=== PATIENT | female | born 1970 | race Two or more races ===

== ENCOUNTER 2024-11-19 05:30 | Inpatient (IN) | payer MEDICAID, OTHER ==
[~2024-11-19] VITALS: Ht 167.6 cm; Wt 86.0 kg
[2024-11-19] MEDS: HALOPERIDOL LACTATE 5 MG/ML INJ VIAL IM ONE ×2 (06:02→12:57)
[2024-11-19] MEDS: HALOPERIDOL LACTATE 5 MG/ML INJ VIAL ONE (06:02)
--- NOTE | 2024-11-19 06:42 | ED.PDOC ---
History of Present Illness HPI Comments 54-year-old female with no reported PMHx brought in by family presents with a chief complaint of ALOC and Combative Behavior. Per family, patient was last seen normal by family last night and patient had gone for a walk, when she came back, she was altered and was combative with family members. Patient is cu rrently asleep on gurney and is in soft four-point restraints. 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: Unknown, Unobtainable Family History Family History: Unknown, Unobtainable Social History Smoker: Unknown, Unobtainable Alcohol: Unknown, Unobtainable Drugs: Unknown, Unobtainable Lives In: Unknown, Unobtainable Constitutional: denies: chills, diaphoresis, fatigue, fever, malaise, sweats, weakness, others EENTM: denies: blurred vision, double vision, ear bleeding, ear discharge, ear drainage, ear pain, ear ringing, eye pain, eye redness, hearing loss, mouth pain, mouth swelling, nasal discharge, nose bleeding, nose congestion, nose pain, photophobia, tearing, throat pain, throat swelling, voice changes, others Respiratory: denies: cough, hemoptysis, orthopnea, SOB at rest, shortness of breath, SOB with excertion, stridor, wheezing, others Cardiovascular: denies: chest pain, dizzy spells, diaphoresis, Dyspnea on exertion, edema, irregular heart beat, left arm pain, lightheadedness, palpitations, PND, syncope, others Gastrointestinal: denies: abdomen distended, abdominal pain, blood streaked bowels, constipated, diarrhea, dysphagia, difficulty swallowing, hematemesis, melena, nausea, poor appetite, poor fluid intake, rectal bleeding, rectal pain, vomiting, others Genitourinary: denies: abnormal vagina bleeding, burning, dyspareunia, dysuria, flank pain, frequency, hematuria, incontinence, pain, , vagina discharge, urgency, others Neurological: denies: dizziness, fainting, headache, left sided numbness, left sided weakness, numbness, paresthesia, pre-existing deficit, right sided numbness, right sided weakness, seizure, speech problems, tingling, tremors, weakness, others Musculoskeletal: denies: back pain, gout, joint pain, joint swelling, muscle pain, muscle stiffness, neck pain, others Integumetry: denies: bruises, change in color, change in hair/nails, dryness, laceration, lesions, lumps, rash, wounds, others Allergic/Immunocompromised: denies: Difficulty Healing, Frequent Infections, Hives, Itching, others Hematologic/Lymphatic: denies: anemia, blood clots, easy bleeding, easy bruising, swollen glands, others Endocrine: denies: excessive hunger, excessive sweating, excessive thirst, excessive urination, flushing, intolerance to cold, intolerance to heat, unexplained weight gain, unexplained weight loss, others Psychiatric: denies: anxiety, bipolar disorder, depression, hopeless, panic disorder, schizophrenia, sleepless, suicidal, others Unable to Obtain due to: Altered Mental Status All Other Systems: Reviewed and Negative Physical Exam General Appearance: Obese, Other (Not following commands, altered level of consciousness) HEENT: Normal ENT Inspection, Pharynx Normal, TMs Normal Neck: Full Range of Motion, Non-Tender, Normal, Normal Inspection Respiratory: Chest Non-Tender, Lungs Clear, No Accessory Muscle Use, No Respiratory Distress, Normal Breath Sounds Cardiovascular: No Edema, No JVD, No Murmur, No Gallop, Normal Peripheral Pulses, Regular Rate/Rhythm Breast Exam: Deferred Gastrointestinal: No Organomegaly, Non Tender, No Pulsatile Mass, Normal Bowel Sounds, Soft Genitalia: Deferred Pelvic: Deferred Rectal: Deferred Extremities: No calf tenderness, Normal capillary refill, Normal inspection, Normal range of motion, Non-tender, No pedal edema Musculoskeletal : Apperance: Normal 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 Was a procedure done?: No Differential Dx Considerations may include: ACS, CVA, electrolyte abnormalities, polysubstance abuse, psychiatric condition X-Ray, Labs, Meds, VS Vital Signs Date Time Temp Pulse Resp B/P (MAP) Pulse Ox O2 Delivery O2 Flow Rate FiO2 11/19/24 13:11 73 11/19/24 10:00 98.8 63 18 99/52 (68) 95 98.8 11/19/24 08:59 69 11/19/24 08:15 98.8 65 22 121/67 (85) 95 98.8 11/19/24 07:20 Room Air* 0 21 11/19/24 07:15 98.8 72 21 100/51 (67) 95 98.8 11/19/24 06:39 98.2 74 26 108/61 (77) 90 98.2 11/19/24 05:31 99.1 88 18 152/89 (110) 97 99.1 Lab Test 11/19/24 08:53 11/19/24 06:42 11/19/24 05:42 Range/Units Urine Color Light-yellow Yellow Urine Clarity Clear Clear Urine pH 5.5 5.0-9.0 Urine Specific [place] 1.022 1.001-1.035 Urine Protein Negative Negative Urine Ketones 1+ H Negative Urine Blood Negative Negative /uL Urine Nitrite Negative Negative Urine Bilirubin Negative Negative Urine Urobilinogen Normal Negative mg/dL Urine Leukocyte Esterase Negative Negative /uL Urine RBC 1 0 - 4 /hpf Urine Microscopic WBC 1 0-5 /HPF Urine Squamous Epithelial Cells Few <5 /hpf Urine Bacteria None seen None Seen /hpf Urine Mucus Few None Seen Urine Glucose Normal Normal mg/dL Urine Opiates Screen Neg NEGATIVE Urine Fentanyl Screen Neg NEGATIVE Urine Barbiturates Screen Neg NEGATIVE Urine Phencyclidine Screen Neg NEGATIVE Urine Amphetamines Screen Neg NEGATIVE Urine Benzodiazepines Screen Neg NEGATIVE Urine Cocaine Screen Neg NEGATIVE Urine Cannabinoids Screen Neg NEGATIVE White Blood Count 5.7 4.4-10.8 10^3/uL Red Blood Count 4.37 4.0-5.20 10^6/uL Hemoglobin 13.4 12.2-16.2 g/dL Hematocrit 39.0 36.0-46.0 % Mean Corpuscular Volume 89.3 80.0-100.0 fL Mean Corpuscular Hemoglobin 30.7 28.0-32.0 pg Mean Corpuscular Hemoglobin Concent 34.3 32.0-36.0 g/dL Red Cell Distribution Width 12.6 11.8-14.3 % Platelet Count 229 140-450 10^3/uL Mean Platelet Volume 8.2 6.9-10.8 fL Neutrophils (%) (Auto) 76.3 37.0-80.0 % Lymphocytes (%) (Auto) 17.2 10.0-50.0 % Monocytes (%) (Auto) 5.4 0.0-12.0 % Eosinophils (%) (Auto) 0.5 0.0-7.0 % Basophils (%) (Auto) 0.6 0.0-2.0 % Neutrophils # (Auto) 4.4 1.6-8.6 10 ^3/uL Lymphocytes # (Auto) 1.0 0.4-5.4 10 ^3/uL Monocytes # (Auto) 0.3 0-1.3 10 ^3/uL Eosinophils # (Auto) 0 0-0.8 10 ^3/uL Basophils # (Auto) 0 0-0.2 10 ^3/uL Nucleated Red Blood Cells 0.2 % Sodium Level 141 136-145 mmol/L Potassium Level 3.3 L 3.5-5.1 mmol/L Chloride Level 105 98-107 mmol/L Carbon Dioxide Level 26 20-31 mmol/L Anion Gap 10 5-15 Blood Urea Nitrogen 14 9-23 mg/dL Creatinine 0.72 0.550-1.02 mg/dL Glomerular Filtration Rate Calc 101 >90 mL/min BUN/Creatinine Ratio 19.4 10.0-20.0 Serum Glucose 144 H 74-106 mg/dL Calcium Level 9.8 8.7-10.4 mg/dL Salicylates Level < 3.0 -30 mg/dL Acetaminophen Level < 2.0 L 10.0-20.0 UG/ML Plasma/Serum Blood Alcohol < 3.0 <10 mg/dL POC Glucose 166 H 70-106 mg/dl Current Medications Medications (Trade) Dose Ordered Sig/Teri Route Start Time Stop Time Status Last Admin Haloperidol Lactate (Haldol) 10 mg ONCE ONCE IM 11/19/24 06:00 11/19/24 06:01 DC 11/19/24 06:02 Haloperidol Lactate (Haldol) 10 mg ONCE ONCE IM 11/19/24 12:50 11/19/24 12:51 DC 11/19/24 12:57 Time of 1ST Reevaluation: 06:58 Reevaluation 1ST: Unchanged Patient Education/Counseling: Other (Patient is Altered ) Family Education/Counseling: Diagnosis, Treatment Departure 1 Departure Time of Disposition: 14:27 (Patient with worsening altered mental status. We will admit patient to medicine for further workup and expert consultation) Impression: Primary Impression: Acute metabolic encephalopathy Additional Impression: Generalized weakness Disposition: 09 ADMITTED INPATIENT Admit to: Med Surg Condition: Serious Critical Care Note Critical Care Time?: Yes Critical care comment: Altered mental status Authorized and Performed by: Cleopatra Beasley MD Total critical care time: Approximately 38 minutes Due to a high probability of clinically significant, life threatening deterioration, the patient required my highest level of preparedness to intervene emergently and I personally spent this critical care time directly and personally managing the patient. This critical care time included obtaining a history; examining the patient; pulse oximetry; ordering and review of studies; arranging urgent treatment with development of a management plan; evaluation of patient's response to treatment; frequent reassessment; and, discussions with other providers. This critical care time was performed to assess and manage the high probability of imminent, life-threatening deterioration that could result in multi-organ failure. It was exclusive of separately billable procedures and treating other patients and teaching time. Please see my other sections and the rest of the note for further information on patient assessment and treatment. Stability Stability form required: No Heart Score Heart Score: Heart Score Response (Comments) Value History N/A 0 EKG N/A 0 Age N/A 0 Risk Factors N/A 0 Troponin N/A 0 Total 0 I personally scribed for CLEOPATRA BEASLEY MD ([email or web address]) on 11/19/24 at 06:42. Electronically submitted by Brandan Jean ([email or web address]). CLEOPATRA BEASLEY MD Nov 19, 2024 06:42
[2024-11-19 06:56] LABS: Basophils # (auto) 0 10 ^3/uL (0-0.2); Basophils % (auto) 0.6 % (0.0-2.0); Eosinophils # (auto) 0 10 ^3/uL (0-0.8); Eosinophils % (auto) 0.5 % (0.0-7.0); Hemoglobin 13.4 g/dL (12.2-16.2); Lymphocytes % (auto) 17.2 % (10.0-50.0); Mean Corpuscular Hemoglobin 30.7 pg (28.0-32.0); Mean Corpuscular Hgb Conc. 34.3 g/dL (32.0-36.0); Mean Corpuscular Volume 89.3 fL (80.0-100.0); Monocytes # (auto) 0.3 10 ^3/uL (0-1.3); Monocytes % (auto) 5.4 % (0.0-12.0); Neutrophils # (auto) 4.4 10 ^3/uL (1.6-8.6); Neutrophils % (auto) 76.3 % (37.0-80.0); Nucleated Red Blood Cells % 0.2 %; Platelet Count (auto) 229 10^3/uL (140-450); Red Blood Cells 4.37 10^6/uL (4.0-5.20); Red Cell Distribution Width 12.6 % (11.8-14.3); White Blood Cell 5.7 10^3/uL (4.4-10.8)
[2024-11-19 07:02] LABS: Chloride 105 mmol/L (98-107); Sodium 141 mmol/L (136-145)
[2024-11-19 07:03] LABS: Anion Gap 10 (5-15); Calcium 9.8 mg/dL (8.7-10.4); Carbon Dioxide 26 mmol/L (20-31); Potassium 3.3 mmol/L (3.5-5.1)
[2024-11-19 07:08] LABS: BUN/Creatinine Ratio 19.4 (10.0-20.0); Blood Urea Nitrogen 14 mg/dL (9-23); Glucose 144 mg/dL (74-106)
[2024-11-19 07:11] LABS: Blood Alcohol < 3.0 mg/dL (<10); Salicylate < 3.0 mg/dL (-30)
[2024-11-19 07:12] LABS: Acetaminophen < 2.0 UG/ML (10.0-20.0)
[2024-11-19 08:54] LABS: Urine Bacteria None Seen /hpf (None Seen)
[2024-11-19 09:09] LABS: Urine Blood Negative /uL (Negative); Urine Clarity Clear (Clear); Urine Color Light-Yellow (Yellow); Urine Mucus FEW (None Seen); Urine Protein, UAD Negative (Negative); Urine Specific Gravity 1.022 (1.001-1.035); Urine Squamous Epithelial Cell FEW /hpf (<5); Urine Urobilinogen Normal (Negative); Urine WBC 1 /HPF (0-5); Urine pH 5.5 (5.0-9.0)
[2024-11-19 09:18] LABS: Amphetamine Screen, Urine Neg (NEGATIVE); Barbiturate Scree,Urine Neg (NEGATIVE); Benzodiazephine Screen, Urine Neg (NEGATIVE); Cannabinoid Screen, Urine Neg (NEGATIVE); Cocaine Screen, Urine Neg (NEGATIVE); Opiate Scree,Urine Neg (NEGATIVE); Phencyclidine Screen, Urine Neg (NEGATIVE)
--- NOTE | 2024-11-19 13:59 | DVH ---
EXAM: CT HEAD WITHOUT CONTRAST HISTORY: ams COMPARISON: None TECHNIQUE: Axial images of the head were obtained and reformatted in coronal and sagittal planes. All CT scans at this medical facility are performed using dose modulation techniques as appropriate t o a performed exam including the following: Automated exposure control was utilized; adjustment of th e MA and/or KV according to patient size; and use of iterative reconstruction technique. CT Dose: CTDI volume is 62.75 mGy. Dose-length product is 1111.01 mGy*cm FINDINGS: There is no evidence of acute intracranial hemorrhage, mass, mass effect midline shift. There is no h ydrocephalus or extra-axial fluid collection. Perez-white matter differentiation is maintained. There is complete opacification of the right maxillary sinus with surrounding chronic reactive osseou s changes of the bardales. Mastoid air cells are clear. The calvarium is intact. IMPRESSION: 1. No acute intracranial process. 2. Chronic right maxillary sinus disease. HS:Y
[2024-11-19] MEDS ORDERED: ONDANSETRON HCL 4 MG/2 ML VIAL IV PRN (14:45)
[2024-11-19] MEDS ORDERED: DOCUSATE SOD 100 MG CAP PO PRN (14:45)
[2024-11-19] MEDS ORDERED: ACETAMINOPHEN 325 MG TAB PO PRN (14:45)
[2024-11-19] MEDS ORDERED: LORazepam 2MG/ML-1ML VIAL IV PRN (14:45)
[2024-11-19] MEDS ORDERED: HYDROcodone-ACET 5/325MG TAB PO PRN (14:45)
[2024-11-19] MEDS: POTASSIUM CHL 20 Meq TABLET PO ONE (15:06)
--- NOTE | 2024-11-19 15:35 | DVH ---
XY CHEST PORTABLE, HISTORY: ams COMPARISON: None None TECHNICAL DATA: 1 view of the chest was obtained. FINDINGS: Lines and tubes: None Cardiomediastinal silhouette: normal Pulmonary vasculature: normal Lung expansion: low Lung airspace: normal Lung interstitium: normal Pleura: normal Pneumothorax: no Bones: Unremarkable Other: no IMPRESSION: No acute intrathoracic abnormality.
--- NOTE | 2024-11-19 16:11 | DVHHP2 ---
History of Present Illness Reason for Visit: Generalized weakness History of Present Illness The patient is a 54 years old female with unknown past medical history presented to [facility] ED for evaluation of altered level of consciousness. As reported by family member, patient became altered, confused, and combative with family members. Family member reports patient had similar symptoms in September 2024, and after childbirth. Patient was seen and evaluated in the ED, laboratory data shows WBC 5.7, platelets 229, sodium 141, potassium 3.3, BUN 14, creatinine 0.72, glucose 144, calcium 9.8, blood pressure 99/52, heart rate 73, temperature 98.0 F, O2 saturation 95% on room air. Head CT showed no acute intracranial process. On my assessment, family member at bedside, patient remains altered, confused, no diaphoresis, no shortness of breath, no nausea, no vomiting, no fever, no chills. Patient was admitted for further evaluation and medical manage ment. Past Medical History Unknown Past Surgical History Unknown Family History Reviewed, noncontributory to the management of this case. Past Social History The patient lives at home, no history of smoking, alcohol or illicit drugs abuse on file. Review of Systems Constitutional: Yes: Weakness; No: Fever, Chills, Sweats, Malaise, Other Eyes: No: Pain, Vision change, Conjunctivae inflammation, Eyelid inflammation, Other, Redness ENT: No: Ear pain, Ear discharge, Nose pain, Nose discharge, Nose congestion, Mouth pain, Mouth swelling, Throat pain, Throat swelling, Other Respiratory: No: Cough, Dry, Shortness of breath, SOB with excertion, Wheezing, Hemoptysis, Pleuritic Pain, Sputum, Wheezing, Other Cardiovascular: No: Chest Pain, Palpitations, Orthopnea, Paroxysmal Noc. Dyspnea, Edema, Lt Headedness, Other Gastrointestinal: No: Nausea, Vomiting, Abdominal Pain, Diarrhea, Constipation, Melena, Hematochezia, Other Genitourinary: No Dysuria, No Frequency, No Incontinence, No Hematuria, No Retention, No Other Musculoskeletal: No: other, neck pain, shoulder pain, arm pain, back pain, hand pain, leg pain, foot pain Skin: No: Rash, Lesions, Jaundice, Bruising, Other Neurological: Other (Altered level of consciousness); No: Weakness, Numbness, Incoordination, Change in speech, Confusion, Seizures Allergies: Coded Allergies: NO KNOWN ALLERGIES (Unverified , 11/19/24) Medications Current Medications Medications Dose Ordered Sig/Teri Route Start Time Stop Time Status Last Admin Dose Admin Lorazepam 1 mg Q8HP PRN IV 11/19/24 14:45 Sodium Chloride 10 ml Q8HR IV 11/19/24 22:00 Acetaminophen/ Hydrocodone Bitart 1 tab Q4HP PRN PO 11/19/24 14:45 Ondansetron HCl 4 mg Q4HP PRN IV 11/19/24 14:45 Docusate Sodium 100 mg BIDPRN PRN PO 11/19/24 14:45 Acetaminophen 650 mg Q6HP PRN PO 11/19/24 14:45 Exam Vital Signs Vital Signs Date Time Temp Pulse Resp B/P (MAP) Pulse Ox O2 Delivery O2 Flow Rate FiO2 11/19/24 13:11 73 11/19/24 10:00 98.8 18 99/52 (68) 95 98.8 11/19/24 07:20 Room Air* 0 21 General Appearance: Alert, Other (Oriented x1) HEENT: Atraumatic, PERRLA, EOMI, Mucous membr. moist/pink Respiratory: Normal air movement Cardiovascular: Regular rate, Normal S1, Normal S2, No murmurs Abdominal: Normal bowel sounds, Soft, No tenderness, No hepatospenomegaly, No masses Extremities: No clubbing, No cyanosis, No edema, Normal pulses, No tenderness/swelling Skin: No rashes, No breakdown, No significant lesion Neuro: Normal tone, Reflexes 2+, Other Psych/Mental Status: Mood NL, Other (Altered mental status) Labs/Xrays Labs Test 11/19/24 08:53 11/19/24 06:42 11/19/24 05:42 Range/Units Urine Color Light-yellow Yellow Urine Clarity Clear Clear Urine pH 5.5 5.0-9.0 Urine Specific [place] 1.022 1.001-1.035 Urine Protein Negative Negative Urine Ketones 1+ H Negative Urine Blood Negative Negative /uL Urine Nitrite Negative Negative Urine Bilirubin Negative Negative Urine Urobilinogen Normal Negative mg/dL Urine Leukocyte Esterase Negative Negative /uL Urine RBC 1 0 - 4 /hpf Urine Microscopic WBC 1 0-5 /HPF Urine Squamous Epithelial Cells Few <5 /hpf Urine Bacteria None seen None Seen /hpf Urine Mucus Few None Seen Urine Glucose Normal Normal mg/dL Urine Opiates Screen Neg NEGATIVE Urine Fentanyl Screen Neg NEGATIVE Urine Barbiturates Screen Neg NEGATIVE Urine Phencyclidine Screen Neg NEGATIVE Urine Amphetamines Screen Neg NEGATIVE Urine Benzodiazepines Screen Neg NEGATIVE Urine Cocaine Screen Neg NEGATIVE Urine Cannabinoids Screen Neg NEGATIVE White Blood Count 5.7 4.4-10.8 10^3/uL Red Blood Count 4.37 4.0-5.20 10^6/uL Hemoglobin 13.4 12.2-16.2 g/dL Hematocrit 39.0 36.0-46.0 % Mean Corpuscular Volume 89.3 80.0-100.0 fL Mean Corpuscular Hemoglobin 30.7 28.0-32.0 pg Mean Corpuscular Hemoglobin Concent 34.3 32.0-36.0 g/dL Red Cell Distribution Width 12.6 11.8-14.3 % Platelet Count 229 140-450 10^3/uL Mean Platelet Volume 8.2 6.9-10.8 fL Neutrophils (%) (Auto) 76.3 37.0-80.0 % Lymphocytes (%) (Auto) 17.2 10.0-50.0 % Monocytes (%) (Auto) 5.4 0.0-12.0 % Eosinophils (%) (Auto) 0.5 0.0-7.0 % Basophils (%) (Auto) 0.6 0.0-2.0 % Neutrophils # (Auto) 4.4 1.6-8.6 10 ^3/uL Lymphocytes # (Auto) 1.0 0.4-5.4 10 ^3/uL Monocytes # (Auto) 0.3 0-1.3 10 ^3/uL Eosinophils # (Auto) 0 0-0.8 10 ^3/uL Basophils # (Auto) 0 0-0.2 10 ^3/uL Nucleated Red Blood Cells 0.2 % Sodium Level 141 136-145 mmol/L Potassium Level 3.3 L 3.5-5.1 mmol/L Chloride Level 105 98-107 mmol/L Carbon Dioxide Level 26 20-31 mmol/L Anion Gap 10 5-15 Blood Urea Nitrogen 14 9-23 mg/dL Creatinine 0.72 0.550-1.02 mg/dL Glomerular Filtration Rate Calc 101 >90 mL/min BUN/Creatinine Ratio 19.4 10.0-20.0 Serum Glucose 144 H 74-106 mg/dL Hemoglobin A1c 6.3 H <5.7 % A1C Calcium Level 9.8 8.7-10.4 mg/dL Salicylates Level < 3.0 -30 mg/dL Acetaminophen Level < 2.0 L 10.0-20.0 UG/ML Plasma/Serum Blood Alcohol < 3.0 <10 mg/dL POC Glucose 166 H 70-106 mg/dl PATIENT: RUBEN SHEFFIELDACCT: [id number] UNIT: [id number] : 1970 LOC: ER ROOM / BED: / AGE / SEX: 54 / F ADM STATUS: REG ER SERVICE [id number] ORDERING PHYSICIAN: CLEOPATRA RYAN MD PROCEDURE(s): HWOCT - HEAD WITHOUT CONTRAST REASON: [facility] ORDER NUMBER(s): [id number], ACCESSION NUMBER(s): [id number] EXAM: CT HEAD WITHOUT CONTRAST HISTORY: ams COMPARISON: None TECHNIQUE: Axial images of the head were obtained and reformatted in coronal and sagittal planes. All CT scans at this medical facility are performed using dose modulation techniques as appropriate to a performed exam including the following: Automated exposure control was utilized; adjustment of the MA and/or KV according to patient size; and use of iterative reconstruction technique. CT Dose: CTDI volume is 62.75 mGy. Dose-length product is 1111.01 mGy*cm FINDINGS: There is no evidence of acute intracranial hemorrhage, mass, mass effect midline shift. There is no hydrocephalus or extra-axial fluid collection. Perez-white matter differentiation is maintained. There is complete opacification of the right maxillary sinus with surrounding chronic reactive osseous changes of the bardales. Mastoid air cells are clear. The calvarium is intact. IMPRESSION: 1. No acute intracranial process. 2. Chronic right maxillary sinus disease. ORDERING PHYSICIAN: CLEOPATRA RYAN MD PROCEDURE(s): CXRP - CHEST PORTABLE REASON: [facility] ORDER NUMBER(s): [id number], ACCESSION NUMBER(s): [id number] XY CHEST PORTABLE, HISTORY: ams COMPARISON: None None TECHNICAL DATA: 1 view of the chest was obtained. FINDINGS: Lines and tubes: None Cardiomediastinal silhouette: normal Pulmonary vasculature: normal Lung expansion: low Lung airspace: normal Lung interstitium: normal Pleura: normal Pneumothorax: no Bones: Unremarkable Other: no IMPRESSION: No acute intrathoracic abnormality. Assessment/Plan Assessment/Plan Acute metabolic encephalopathy Generalized weakness Plan 1. Admit to telemetry unit 2. Breathing treatment 3. Pain control management 4. Management of fluids and electrolytes 5. Consultation for hospitalist 6. Diagnostic tests head CT 7. DVT prophylaxis-on SCDs 8. Repeat labs CBC, CMP in a.m. 9. Continue with current medical management 10. Treatment plan discussed with patient and RN. Patient verbalized understanding. Plan discussed with: Patient, Other (RN) My Orders Orders - DU PAYTON DNP Procedure Category Date Status Time Lorazepam 2mg/Ml Inj PHA 11/19/24 In Process (Ativan Inj) 14:45 Allergies GREG 11/19/24 In Process 14:39 Code Status CODE 11/19/24 Transmitted 14:39 Sodium Chloride Lock PHA 11/19/24 In Process (Saline Lock Ns) 22:00 Oxygen Per Hour RT 11/19/24 Transmitted 14:39 Hydrocodone-Acet PHA 11/19/24 In Process 5/325mg Tab ([place] 14:45 Ondansetron Hcl PHA 11/19/24 In Process (Zofran) 14:45 Docusate Sodium PHA 11/19/24 In Process Capsule (Colace 14:45 Fall Risk Precautions GREG 11/19/[address] 14:39 Complete Blood Count LAB 11/20/24 Verified 04:00 Comprehensive LAB 11/20/24 Verified Metabolic Panel 04:00 Cardiac DIET 11/19/24 Transmitted Diet-2gna,Lofat,Lochol Dinner Condition: Serious GREG 11/19/24 In Process 14:39 Acetaminophen Tablet PHA 11/19/24 In Process (Tylenol Tablet) 14:45 Maintain Bed Rest GREG 11/19/24 In Process 14:39 Sequential GREG 11/19/24 In Process Compression Device Admit ADMIT 11/19/24 Verified 16:10 Nitroglycerin PHA 11/19/24 Verified Sublingual (Ntrostat 16:15 Morphine Sulfate PHA 11/19/24 Verified Injection 16:15 Notify Md Of Changes GREG 11/19/24 Verified From Base 16:10 Yard Clerk For [facility] 11/19/24 Verified 24 Hours 16:10 Emergency Dysrhythmia GREG 11/19/24 Verified Protocol 16:10 Rhythm Strips Once GREG 11/19/24 Verified Every Shift 16:10 Oxygen By Nasal RT 11/19/24 Verified Cannula 16:10 Problem List: (1) Acute metabolic encephalopathy (2) Generalized weakness Date of Service: Nov 19, 2024 Billing Provider: DU PAYTON DNP Common Visit Codes: [id number] INP/OBS CARE (HIGH) DU PAYTON DNP Nov 19, 2024 16:11
--- NOTE | 2024-11-19 16:14 | DVHINCON2 ---
Date of Service if different f: Nov 19, 2024 Time of Service: 16:12 Consultation ([place]) Labs Laboratory Tests Test 11/19/24 05:42 11/19/24 06:42 11/19/24 08:53 Bedside Glucose 166 mg/dl (70-106) White Blood Count 5.7 10^3/uL (4.4-10.8) Red Blood Count 4.37 10^6/uL (4.0-5.20) Hemoglobin 13.4 g/dL (12.2-16.2) Hematocrit 39.0 % (36.0-46.0) Mean Corpuscular Volume 89.3 fL (80.0-100.0) Mean Corpuscular Hemoglobin 30.7 pg (28.0-32.0) Mean Corpuscular Hemoglobin Concent 34.3 g/dL (32.0-36.0) Red Cell Distribution Width 12.6 % (11.8-14.3) Platelet Count 229 10^3/uL (140-450) Mean Platelet Volume 8.2 fL (6.9-10.8) Neutrophils (%) (Auto) 76.3 % (37.0-80.0) Lymphocytes (%) (Auto) 17.2 % (10.0-50.0) Monocytes (%) (Auto) 5.4 % (0.0-12.0) Eosinophils (%) (Auto) 0.5 % (0.0-7.0) Basophils (%) (Auto) 0.6 % (0.0-2.0) Neutrophils # (Auto) 4.4 10 ^3/uL (1.6-8.6) Lymphocytes # (Auto) 1.0 10 ^3/uL (0.4-5.4) Monocytes # (Auto) 0.3 10 ^3/uL (0-1.3) Eosinophils # (Auto) 0 10 ^3/uL (0-0.8) Basophils # (Auto) 0 10 ^3/uL (0-0.2) Nucleated Red Blood Cells 0.2 % Sodium Level 141 mmol/L (136-145) Potassium Level 3.3 mmol/L (3.5-5.1) Chloride Level 105 mmol/L (98-107) Carbon Dioxide Level 26 mmol/L (20-31) Anion Gap 10 (5-15) Blood Urea Nitrogen 14 mg/dL (9-23) Creatinine 0.72 mg/dL (0.550-1.02) Glomerular Filtration Rate Calc 101 mL/min (>90) BUN/Creatinine Ratio 19.4 (10.0-20.0) Serum Glucose 144 mg/dL (74-106) Hemoglobin A1c 6.3 % A1C (<5.7) Calcium Level 9.8 mg/dL (8.7-10.4) Salicylates Level < 3.0 mg/dL (-30) Acetaminophen Level < 2.0 UG/ML (10.0-20.0) Plasma/Serum Blood Alcohol < 3.0 mg/dL (<10) Urine Color Light-yellow (Yellow) Urine Clarity Clear (Clear) Urine pH 5.5 (5.0-9.0) Urine Specific [place] 1.022 (1.001-1.035) Urine Protein Negative (Negative) Urine Ketones 1+ (Negative) Urine Blood Negative /uL (Negative) Urine Nitrite Negative (Negative) Urine Bilirubin Negative (Negative) Urine Urobilinogen Normal mg/dL (Negative) Urine Leukocyte Esterase Negative /uL (Negative) Urine RBC 1 /hpf (0 - 4) Urine Microscopic WBC 1 /HPF (0-5) Urine Squamous Epithelial Cells Few /hpf (<5) Urine Bacteria None seen /hpf (None Seen) Urine Mucus Few (None Seen) Urine Glucose Normal mg/dL (Normal) Urine Opiates Screen Neg (NEGATIVE) Urine Fentanyl Screen Neg (NEGATIVE) Urine Barbiturates Screen Neg (NEGATIVE) Urine Phencyclidine Screen Neg (NEGATIVE) Urine Amphetamines Screen Neg (NEGATIVE) Urine Benzodiazepines Screen Neg (NEGATIVE) Urine Cocaine Screen Neg (NEGATIVE) Urine Cannabinoids Screen Neg (NEGATIVE) Vitals Vital Signs Date Time Temp Pulse Resp B/P (MAP) Pulse Ox O2 Delivery O2 Flow Rate FiO2 11/19/24 13:11 73 11/19/24 10:00 98.8 18 99/52 (68) 95 98.8 11/19/24 07:20 Room Air* 0 21 Current medications Current Medications Medications Dose Ordered Sig/Teri Route Start Time Stop Time Status Last Admin Dose Admin Lorazepam 1 mg Q8HP PRN IV 11/19/24 14:45 Sodium Chloride 10 ml Q8HR IV 11/19/24 22:00 Acetaminophen/ Hydrocodone Bitart 1 tab Q4HP PRN PO 11/19/24 14:45 Ondansetron HCl 4 mg Q4HP PRN IV 11/19/24 14:45 Docusate Sodium 100 mg BIDPRN PRN PO 11/19/24 14:45 Acetaminophen 650 mg Q6HP PRN PO 11/19/24 14:45 PSYCHIATRY CONSULTATION Attempted to evaluate pt but she is too sedated. RN asked to re-page for consult once pt alert. FRANCHESCA DAVIS MD Nov 19, 2024 16:14
[2024-11-19] MEDS ORDERED: MORPHINE SULFATE INJ 2 MG/ml SYRG IV PRN (16:15)
[2024-11-19] MEDS ORDERED: NITROGLYCERIN 0.4 MG SL TAB SL PRN (16:15)
[2024-11-19 19:30] VITALS: RESP 19; O2SAT 96
[2024-11-19] MEDS: SODIUM CHLOR 0.9% PF (SALINE LOCK) 10ML VIAL/SYR IV SCH (22:00)
[2024-11-20 04:04] LABS: Basophils # (auto) 0 10 ^3/uL (0-0.2); Basophils % (auto) 0.7 % (0.0-2.0); Eosinophils # (auto) 0.1 10 ^3/uL (0-0.8); Eosinophils % (auto) 1.4 % (0.0-7.0); Hematocrit 40.4 % (36.0-46.0); Lymphocytes # (auto) 1.7 10 ^3/uL (0.4-5.4); Lymphocytes % (auto) 25.9 % (10.0-50.0); Mean Corpuscular Hemoglobin 31.1 pg (28.0-32.0); Mean Corpuscular Hgb Conc. 34.6 g/dL (32.0-36.0); Mean Corpuscular Volume 89.7 fL (80.0-100.0); Monocytes # (auto) 0.5 10 ^3/uL (0-1.3); Monocytes % (auto) 6.9 % (0.0-12.0); Neutrophils # (auto) 4.3 10 ^3/uL (1.6-8.6); Neutrophils % (auto) 65.1 % (37.0-80.0); Nucleated Red Blood Cells % 0.2 %; Platelet Count (auto) 234 10^3/uL (140-450); Red Cell Distribution Width 12.7 % (11.8-14.3); White Blood Cell 6.7 10^3/uL (4.4-10.8)
[2024-11-20 04:15] LABS: Alanine Aminotransferase 20 U/L (7-40); Albumin 4.4 g/dL (3.2-4.8); Alkaline Phosphatase 61 U/L (46-116); Anion Gap 9 (5-15); Aspartate Aminotransferase 22 U/L (<34); BUN/Creatinine Ratio 14.1 (10.0-20.0); Bilirubin, Total 0.6 mg/dL (0.2-1.0); Blood Urea Nitrogen 10 mg/dL (9-23); Calcium 9.8 mg/dL (8.7-10.4); Carbon Dioxide 26 mmol/L (20-31); Potassium 3.9 mmol/L (3.5-5.1); Sodium 142 mmol/L (136-145); Total Protein 7.1 g/dL (5.7-8.2)
[2024-11-20 04:16] LABS: Chloride 107 mmol/L (98-107); Glucose 109 mg/dL (74-106)
[2024-11-20 07:40] VITALS: PULSE 82; RESP 16; O2SAT 95
--- NOTE | 2024-11-20 13:20 | DVHPN2 ---
Subjective 54-year-old female was admitted here yesterday because she became altered According to the became altered for last 2 days, she is not speaking, he says maybe she got scared of something Per her son, she became depressed after he moved away Changes from previous H/P or p: Changes Eyes: No Pain, No Vision change, No Conjunctivae inflammation, No Eyelid inflammation, No Other, No Redness ENT: No Ear pain, No Ear discharge, No Nose pain, No Nose discharge, No Nose congestion, No Mouth pain, No Mouth swelling, No Throat pain, No Throat swelling, No Other Cardiovascular: No Chest Pain, No Palpitations, No Orthopnea, No Paroxysmal Noc. Dyspnea, No Edema, No Lt Headedness, No Other Respiratory: No Cough, No Dry, No Shortness of breath, No SOB with excertion, No Wheezing, No Hemoptysis, No Pleuritic Pain, No Sputum, No Other Gastrointestinal: No Nausea, No Vomiting, No Abdominal Pain, No Diarrhea, No Constipation, No Melena, No Hematochezia, No Other Genitourinary: No Dysuria, No Frequency, No Incontinence, No Hematuria, No Retention, No Other Musculoskeletal: No other, No neck pain, No shoulder pain, No arm pain, No back pain, No hand pain, No leg pain, No foot pain Skin: No Rash, No Lesions, No Jaundice, No Bruising, No Other Objective Vitals Vital Signs Date Time Temp Pulse Resp B/P (MAP) Pulse Ox O2 Delivery O2 Flow Rate FiO2 11/20/24 12:00 96 11/20/24 12:00 97.9 28 147/79 (101) 92 97.9 11/20/24 07:40 Room Air* 0 21 Intake/Output Intake and Output 11/20/24 07:00 Output Total 1000 ml Balance -1000 ml Output Urine Total 1000 ml General Appearance: Alert, Oriented X3 Lungs: Clear to auscultation, Normal air movement Cardiovascular: Regular rate, Normal S1, Normal S2, No murmurs Abdomen: Normal bowel sounds, Soft Extremities: No edema Medications Current Medications Medications Dose Ordered Sig/Teri Route Start Time Stop Time Status Last Admin Dose Admin Sodium Chloride 10 ml Q8HR IV 11/19/24 22:00 11/20/24 05:39 10 ML Ondansetron HCl 4 mg Q4HP PRN IV 11/19/24 14:45 Docusate Sodium 100 mg BIDPRN PRN PO 11/19/24 14:45 Acetaminophen 650 mg Q6HP PRN PO 11/19/24 14:45 Nitroglycerin 0.4 mg Q5MINP PRN SL 11/19/24 16:15 Laboratory Results Laboratory Tests 11/20/24 03:49 Chemistry Test 11/20/24 03:49 Albumin 4.4 g/dL (3.2-4.8) Calcium Level 9.8 mg/dL (8.7-10.4) Total Protein 7.1 g/dL (5.7-8.2) LFT Test 11/20/24 03:49 Alanine Aminotransferase (ALT) 20 U/L (7-40) Alkaline Phosphatase 61 U/L (46-116) Aspartate Amino Transferase (AST) 22 U/L (<34) Total Bilirubin 0.6 mg/dL (0.2-1.0) Urinalysis Test 11/19/24 08:53 Urine Color Light-yellow (Yellow) Urine Clarity Clear (Clear) Urine pH 5.5 (5.0-9.0) Urine Specific [place] 1.022 (1.001-1.035) Urine Protein Negative (Negative) Urine Ketones 1+ (Negative) H Urine Blood Negative /uL (Negative) Urine Nitrite Negative (Negative) Urine Bilirubin Negative (Negative) Urine Urobilinogen Normal mg/dL (Negative) Urine Leukocyte Esterase Negative /uL (Negative) Urine RBC 1 /hpf (0 - 4) Urine Microscopic WBC 1 /HPF (0-5) Urine Squamous Epithelial Cells Few /hpf (<5) Urine Bacteria None seen /hpf (None Seen) Urine Mucus Few (None Seen) Urine Glucose Normal mg/dL (Normal) Assessment/Plan Assessment/Plan Altered level of consciousness Anxiety Depression? DM2 Hypokalemia Plan Scan of the head was negative Chest x-ray is normal Hypokalemia, corrected Consult neurology Consult psychiatry Check the TSH and B12 and folic acid Monitor closely Discussed with the at the bedside Discussed with the son over the phone Full code Advance directives discussed for 20 minutes Plan discussed with: Patient, Spouse, Son Date of Service: Nov 20, 2024 Billing Provider: ELLIOTT UREÑA MD Common Visit Codes: [id number] INP/OBS CARE(HIGH) Secondary Visit Codes: [id number] CARE PLAN 30 MINUTES ELLIOTT UREÑA MD Nov 20, 2024 13:20
[2024-11-20 15:29] VITALS: BP 154/81; PULSE 99; RESP 17; TEMP 98.8; O2SAT 96
[2024-11-20 16:36] VITALS: BP 134/77; PULSE 99; RESP 18; TEMP 98.5; O2SAT 99
[2024-11-20 16:44] VITALS: TEMP 98.5
[2024-11-20] MEDS ORDERED: METF-370 PO (17:14)
[2024-11-20] MEDS ORDERED: [UNRECOGNIZED DRUG - CODE] PO (17:14)
[2024-11-20] MEDS ORDERED: ENAL5TAB22 PO (17:14)
[2024-11-20 20:00] VITALS: PULSE 87; PULSE 98; RESP 18; O2SAT 95
[2024-11-20 21:00] VITALS: BP 122/78; PULSE 87; RESP 18; TEMP 98.7; O2SAT 95
--- NOTE | 2024-11-20 21:54 | DVHINCON2 ---
Date of service: Nov 20, [address] Fuentes Reason for Consultation ALOC History of Present Illness Ms. Judson Rodriguez is a 54 years old right-handed female with a history of hypertension, prediabetes, she was brought to the [facility] on 11/19/2024 with a chief complaint of altered mental status. At this time, she is alert and oriented x3, good social skills, but she does not know why she came to the hospital, she only has islands of memory about coming to the hospital. The history is obtained from her sister, boyfriend, I have also reviewed chart and talked to her nurse According to the family, the patient looks depressed, sick, did not eat for only eight slowly, did not talk before she came to the hospital. The ER note also mentioned confusion, combative behavior. In 09/2024, for several days the patient has had abnormal behavior, in that she did not sleep, but full of energy, moving and talking excessively Long time ago, when she was , she was agitated for several days The family denies a history of bipolar or other psychiatric disorder [phone] answer [phone] Plasma alcohol, 11/19/2024: Normal UDS, 11/19/2024: Negative Urinalysis, 11/19/2024: WBC: 1, urine leukocyte esterase: Negative CBC, 11/20/2024: Unremarkable CMP, 11/20/2024: Unremarkable HGB A1c, 11/19/2024: 6 from 3 Vitamin B12, 11/20/2024: Folic acid, 11/20/2024: TSH, 11/20/2024: 1.89 Chest x-ray, 11/19/2024: No acute intrathoracic abnormality CT head, 11/19/2024: 1. No acute intracranial process. 2. Chronic right maxillary sinus disease. Past Medical History Hypertension, pre diabetes, no stroke, no seizure Past Surgical History None Family History: Depression G8 MOTHER G8 FATHER Diabetes mellitus G8 MOTHER G8 FATHER Hypercholesterolemia G8 MOTHER Family History Diabetes, dyslipidemia, depression Social History She has no history of smoking, drug or alcohol abuse Allergies: Coded Allergies: NO KNOWN ALLERGIES (Unverified , 11/19/24) Home Meds Reported Medications Paroxetine HCl (Paroxetine Hydrochloride) 10 Mg/5 Ml Sienna, 10 MG PO QPM, ML 6/17/25 Enalapril Maleate (Enalapril Maleate) 5 Mg Tab, 10 MG PO DAILY, #30 TAB 5 Refills 11/20/24 Metformin Hydrochloride (Metformin Hcl) 500 Mg Tab, 500 MG PO DAILY for 30 Days, MG 11/20/24 Current Medications Current Medications Medications (Trade) Dose Ordered Sig/Teri Route PRN Reason Start Time Stop Time Status Last Admin Sodium Chloride (Saline Lock Ns) 10 ml Q8HR IV 11/19/24 22:00 11/20/24 14:03 Docusate Sodium (Colace Capsule) 100 mg BID PO 11/20/24 22:00 11/20/24 21:04 DC Review of Systems As above, the other systems are negative Vital Signs Vital Signs Date Time Temp Pulse Resp B/P (MAP) Pulse Ox O2 Delivery O2 Flow Rate FiO2 11/20/24 16:44 98.5 98.5 11/20/24 16:44 Room Air* 0 21 11/20/24 16:36 99 18 134/77 (96) 99 Physical Exam GENERAL EXAM: General: the patient is well developed and nourished. No acute distress. HEENT: Normocephalic, neck is supple, no carotid bruits. No mass RESPIRATORY: Normal respiratory effort with symmetrical lung expansion. Lungs clear to auscultation. CARDIOVASCULAR: Regular rate and rhythm with no murmurs. S1, S2. ABDOMEN: Soft, nontender, normal bowel sound NEUROLOGICAL: MENTAL STATUS: Awake and alert. Oriented to person, place, time and general circumstances. She does not know why she came to the hospital SPEECH, LANGUAGE, HIGHER CORTICAL FUNCTION: no aphasia or dysathria. CRANIAL NERVES: #2: Intact visual [place] to confrontation. The optic discs were sharp. #3,4,6: Pupils are equal, round and reactive. EOMs full and conjugate. No nystagmus. #5: Facial sensation intact in all three divisions bilaterally. Mandibular strength intact. #7: Facial muscles symmetrical and strength intact. #8: Hearing grossly normal to voice. #9,10: Uvula and soft palate rise in the midline. Swallow and voice are normal. #11: Trapezius and sternomastoid strength intact bilaterally. #12: Tongue midline. No fasciculations or atrophy. SENSATION: Sensation to touch and pinprick is normal. MOTOR: Normal tone in the upper and lower extremity. Normal muscle bulk. No fasciculations. No abnormal movements or posturing. Muscle strength of the major groups in the upper extremities is 5/5. Muscle strength of the major groups in the lower extremities is 5/5. REFLEXES: Deep tendon reflexes are symmetrical. No pathological reflexes. CEREBELLAR/COORDINATION: Finger to nose is normal bilaterally. GAIT/STATION: deferred. Labs/Diagnostic Data Labs Test 11/20/24 03:49 11/19/24 08:53 11/19/24 06:42 11/19/24 05:42 Range/Units White Blood Count 6.7 4.4-10.8 10^3/uL Red Blood Count 4.50 4.0-5.20 10^6/uL Hemoglobin 14.0 12.2-16.2 g/dL Hematocrit 40.4 36.0-46.0 % Mean Corpuscular Volume 89.7 80.0-100.0 fL Mean Corpuscular Hemoglobin 31.1 28.0-32.0 pg Mean Corpuscular Hemoglobin Concent 34.6 32.0-36.0 g/dL Red Cell Distribution Width 12.7 11.8-14.3 % Platelet Count 234 140-450 10^3/uL Mean Platelet Volume 8.0 6.9-10.8 fL Neutrophils (%) (Auto) 65.1 37.0-80.0 % Lymphocytes (%) (Auto) 25.9 10.0-50.0 % Monocytes (%) (Auto) 6.9 0.0-12.0 % Eosinophils (%) (Auto) 1.4 0.0-7.0 % Basophils (%) (Auto) 0.7 0.0-2.0 % Neutrophils # (Auto) 4.3 1.6-8.6 10 ^3/uL Lymphocytes # (Auto) 1.7 0.4-5.4 10 ^3/uL Monocytes # (Auto) 0.5 0-1.3 10 ^3/uL Eosinophils # (Auto) 0.1 0-0.8 10 ^3/uL Basophils # (Auto) 0 0-0.2 10 ^3/uL Nucleated Red Blood Cells 0.2 % Sodium Level 142 136-145 mmol/L Potassium Level 3.9 3.5-5.1 mmol/L Chloride Level 107 98-107 mmol/L Carbon Dioxide Level 26 20-31 mmol/L Anion Gap 9 5-15 Blood Urea Nitrogen 10 9-23 mg/dL Creatinine 0.71 0.550-1.02 mg/dL Glomerular Filtration Rate Calc 102 >90 mL/min BUN/Creatinine Ratio 14.1 10.0-20.0 Serum Glucose 109 H 74-106 mg/dL Calcium Level 9.8 8.7-10.4 mg/dL Total Bilirubin 0.6 0.2-1.0 mg/dL Aspartate Amino Transferase (AST) 22 <34 U/L Alanine Aminotransferase (ALT) 20 7-40 U/L Alkaline Phosphatase 61 46-116 U/L Total Protein 7.1 5.7-8.2 g/dL Albumin 4.4 3.2-4.8 g/dL Thyroid Stimulating Hormone (TSH) 1.89 0.55-4.78 uIU/mL Urine Color Light-yellow Yellow Urine Clarity Clear Clear Urine pH 5.5 5.0-9.0 Urine Specific [place] 1.022 1.001-1.035 Urine Protein Negative Negative Urine Ketones 1+ H Negative Urine Blood Negative Negative /uL Urine Nitrite Negative Negative Urine Bilirubin Negative Negative Urine Urobilinogen Normal Negative mg/dL Urine Leukocyte Esterase Negative Negative /uL Urine RBC 1 0 - 4 /hpf Urine Microscopic WBC 1 0-5 /HPF Urine Squamous Epithelial Cells Few <5 /hpf Urine Bacteria None seen None Seen /hpf Urine Mucus Few None Seen Urine Glucose Normal Normal mg/dL Urine Opiates Screen Neg NEGATIVE Urine Fentanyl Screen Neg NEGATIVE Urine Barbiturates Screen Neg NEGATIVE Urine Phencyclidine Screen Neg NEGATIVE Urine Amphetamines Screen Neg NEGATIVE Urine Benzodiazepines Screen Neg NEGATIVE Urine Cocaine Screen Neg NEGATIVE Urine Cannabinoids Screen Neg NEGATIVE Hemoglobin A1c 6.3 H <5.7 % A1C Salicylates Level < 3.0 -30 mg/dL Acetaminophen Level < 2.0 L 10.0-20.0 UG/ML Plasma/Serum Blood Alcohol < 3.0 <10 mg/dL POC Glucose 166 H 70-106 mg/dl Assessment Altered mental status Metabolic encephalopathy Depression Seizure activity Bipolar disorder Plan/Recommendation Monitoring Supportive treatment Telemetry EEG MR brain scan Psychiatric evaluation More recommendation per clinical course Prognosis: Poor This medical document was created using an electronic medical record system with [email or web address] dictation system. Although this document has been carefully reviewed, there may still be some phonetic and typographical errors. These areas are purely typographical due to imperfections of the software programs, and do not reflect any compromise in the patient's medical care. Plan discussed with: Spouse, Other PHAN GARNER MD Nov 20, 2024 21:54
[2024-11-20] MEDS ORDERED: DOCUSATE SOD 100 MG CAP PO SCH (22:00)
[2024-11-20] MEDS ORDERED: LORazepam 2MG/ML-1ML VIAL IV PRN (22:30)
[2024-11-21] VITALS (8 sets, daily range): BP systolic 118–150; BP diastolic 65–76; PULSE 0–100; RESP 16–18; TEMP 97.7–98.3; O2SAT 95–98
--- NOTE | 2024-11-21 09:17 | DVHPN2 ---
Progress Note - Dictate Date Seen: Nov 21, 2024 Medical Necessity Reason Pt with a Central, PICC or Fol: No Subjective Ms. Judson Rodriguez is a 54 years old right-handed female with a history of hypertension, prediabetes, she was brought to the [facility] on 11/19/2024 with a chief complaint of altered mental status. I have seen and examined the patient, I have discussed with her nurse and sitter, she is alert and oriented x3, no new complaints She reports symptoms of depression, but she denies suicidal issues on her Plasma alcohol, 11/19/2024: Normal UDS, 11/19/2024: Negative Urinalysis, 11/19/2024: WBC: 1, urine leukocyte esterase: Negative CBC, 11/20/2024: Unremarkable CMP, 11/20/2024: Unremarkable HGB A1c, 11/19/2024: 6 from 3 Vitamin B12, 11/20/2024: Folic acid, 11/20/2024: TSH, 11/20/2024: 1.89 Chest x-ray, 11/19/2024: No acute intrathoracic abnormality CT head, 11/19/2024: 1. No acute intracranial process. 2. Chronic right maxillary sinus disease. vital signs Vital Sign Date Time Temp Pulse Resp B/P (MAP) Pulse Ox O2 Delivery O2 Flow Rate FiO2 11/21/24 07:48 0 Room Air* 0 21 11/21/24 05:00 98.2 18 122/65 (84) 96 98.2 Total Intake and Output 11/20/24 11/20/24 11/21/24 15:00 23:00 07:00 Intake Total 0 ml 1600 ml Output Total 400 ml 1225 ml Balance -400 ml 375 ml medications Current Medications Medications Dose Ordered Sig/Teri Route Start Time Stop Time Status Last Admin Dose Admin Sodium Chloride 10 ml Q8HR IV 11/19/24 22:00 11/21/24 05:42 10 ML Ondansetron HCl 4 mg Q4HP PRN IV 11/19/24 14:45 Docusate Sodium 100 mg BIDPRN PRN PO 11/19/24 14:45 Acetaminophen 650 mg Q6HP PRN PO 11/19/24 14:45 Nitroglycerin 0.4 mg Q5MINP PRN SL 11/19/24 16:15 Lorazepam 1 mg ONCE PRN IV 11/20/24 22:30 objective General: the patient is well developed and nourished. No acute distress. MENTAL STATUS: Subjective SPEECH, LANGUAGE, HIGHER CORTICAL FUNCTION: no aphasia or dysathria. CRANIAL NERVES: Pupils are equal, round and reactive. EOMs full and conjugate. No nystagmus. Facial sensation intact in all three divisions bilaterally. Mandibular strength intact. Facial muscles symmetrical and strength intact. SENSATION: Sensation to touch and pinprick is normal. MOTOR: Normal tone in the upper and lower extremity. Normal muscle bulk. No fasciculations. No abnormal movements or posturing. Muscle strength of the major groups in the extremities is 5/5. REFLEXES: Deep tendon reflexes are symmetrical. No pathological reflexes. CEREBELLAR/COORDINATION: Finger to nose is normal bilaterally. GAIT/STATION: deferred laboratory and microbiology Laboratory Tests 11/20/24 03:49 Test 11/20/24 03:49 Range/Units Serum Glucose 109 H 74-106 mg/dL Problem List Altered mental status Metabolic encephalopathy Depression Seizure activity Bipolar disorder Assessment/Plan Monitoring Supportive treatment Telemetry EEG MR brain scan Psychiatric evaluation More recommendation per clinical course This medical document was created using an electronic medical record system with [employer] dictation system. Although this document has been carefully reviewed, there may still be some phonetic and typographical errors. These areas are purely typographical due to imperfections of the software programs, and do not reflect any compromise in the patient's medical care. Prognosis poor Plan discussed with: Patient, Other Total Time (mins): 35 PHAN GARNER MD Nov 21, 2024 09:17
--- NOTE | 2024-11-21 09:20 | DVH ---
PROCEDURE: MRI BRAIN HEAD WO CONTRAST INDICATION: ALOC EXAM DATE: 11/21/2024 08:36 AM COMPARISON: None TECHNIQUE: MRI of the brain without intravenous contrast. FINDINGS: Diffusion weighted images of the brain demonstrate no evidence of acute infarction. There is no evidence of acute intracranial hemorrhage, extra-axial collection, mass effect, midline s hift, herniation or hydrocephalus. The ventricles, sulci and cisterns appear age appropriate. Single T2 bright focus in the left frontal white matter. There are no signal abnormalities on the susceptibility weighted sequences. The major vascular flow voids are present. Opacification of the right maxillary sinus. The surrounding soft tissues and osseous structures are unremarkable. IMPRESSION: 1. No evidence of acute infarction, intracranial hemorrhage, mass effect or hydrocephalus. Nonspecifi c focus of signal abnormality in the left frontal white matter. Right maxillary sinus disease. HS:Y
--- NOTE | 2024-11-21 10:22 | DVHPN2 ---
Subjective Better She is more alert and oriented She is actually speaking today She is asymptomatic The patient is willing to speak to Psychiatry now Changes from previous H/P or p: Changes Eyes: No Pain, No Vision change, No Conjunctivae inflammation, No Eyelid inflammation, No Other, No Redness ENT: No Ear pain, No Ear discharge, No Nose pain, No Nose discharge, No Nose congestion, No Mouth pain, No Mouth swelling, No Throat pain, No Throat swelling, No Other Cardiovascular: No Chest Pain, No Palpitations, No Orthopnea, No Paroxysmal Noc. Dyspnea, No Edema, No Lt Headedness, No Other Respiratory: No Cough, No Dry, No Shortness of breath, No SOB with excertion, No Wheezing, No Hemoptysis, No Pleuritic Pain, No Sputum, No Other Gastrointestinal: No Nausea, No Vomiting, No Abdominal Pain, No Diarrhea, No Constipation, No Melena, No Hematochezia, No Other Genitourinary: No Dysuria, No Frequency, No Incontinence, No Hematuria, No Retention, No Other Musculoskeletal: No other, No neck pain, No shoulder pain, No arm pain, No back pain, No hand pain, No leg pain, No foot pain Skin: No Rash, No Lesions, No Jaundice, No Bruising, No Other Objective Vitals Vital Signs Date Time Temp Pulse Resp B/P (MAP) Pulse Ox O2 Delivery O2 Flow Rate FiO2 11/21/24 09:18 97.7 70 17 118/ 96 97.7 11/21/24 07:48 Room Air* 0 21 Intake/Output Intake and Output 11/21/24 07:00 Intake Total 1600 ml Output Total 1625 ml Balance -25 ml Intake Oral 1600 ml Output Urine Total 1625 ml # Bowel Movements 2 General Appearance: Alert, Oriented X3 Lungs: Clear to auscultation, Normal air movement Cardiovascular: Regular rate, Normal S1, Normal S2, No murmurs Abdomen: Normal bowel sounds, Soft Extremities: No edema Medications Current Medications Medications Dose Ordered Sig/Teri Route Start Time Stop Time Status Last Admin Dose Admin Sodium Chloride 10 ml Q8HR IV 11/19/24 22:00 11/21/24 05:42 10 ML Ondansetron HCl 4 mg Q4HP PRN IV 11/19/24 14:45 Docusate Sodium 100 mg BIDPRN PRN PO 11/19/24 14:45 Acetaminophen 650 mg Q6HP PRN PO 11/19/24 14:45 Nitroglycerin 0.4 mg Q5MINP PRN SL 11/19/24 16:15 Lorazepam 1 mg ONCE PRN IV 11/20/24 22:30 Laboratory Results Laboratory Tests 11/20/24 03:49 Urinalysis Test 11/19/24 08:53 Urine Color Light-yellow (Yellow) Urine Clarity Clear (Clear) Urine pH 5.5 (5.0-9.0) Urine Specific [place] 1.022 (1.001-1.035) Urine Protein Negative (Negative) Urine Ketones 1+ (Negative) H Urine Blood Negative /uL (Negative) Urine Nitrite Negative (Negative) Urine Bilirubin Negative (Negative) Urine Urobilinogen Normal mg/dL (Negative) Urine Leukocyte Esterase Negative /uL (Negative) Urine RBC 1 /hpf (0 - 4) Urine Microscopic WBC 1 /HPF (0-5) Urine Squamous Epithelial Cells Few /hpf (<5) Urine Bacteria None seen /hpf (None Seen) Urine Mucus Few (None Seen) Urine Glucose Normal mg/dL (Normal) Assessment/Plan Assessment/Plan Altered level of consciousness Anxiety Depression? DM2 Hypokalemia Plan Scan of the head was negative Chest x-ray is normal Hypokalemia, corrected Consult neurology Consult psychiatry Check the TSH and B12 and folic acid Monitor closely Discussed with the at the bedside Discussed with the son over the phone Full code Advance directives discussed for 20 minutes 11/21/2024: The patient is more alert and she is actually verbal today She said she does not remember what was going on at home except that according to her son she was depressed about her immigration status and afraid and therefore she was not talking The fact that her son also moved out of state made her more depressed She was recently prescribed paroxetine but is not clear how many days she took it for Today she said she is willing to discuss her issues with a psychiatrist Consult tele psychiatry Plan discussed with: Patient My Orders Orders - ELLIOTT UREÑA MD Procedure Category Date Status Time *Consult Dr. Quiroz CONS 11/20/24 Transmitted [place] 13:11 Vitamin B12 LAB 11/20/24 In Process 13:18 Folate (Folic Acid) LAB 11/20/24 In Process 13:18 Date of Service: Nov 21, 2024 Billing Provider: ELLIOTT UREÑA MD Common Visit Codes: [id number] INP/OBS CARE(HIGH) ELLIOTT UREÑA MD Nov 21, 2024 10:21
[2024-11-21 11:41] LABS: Folate (Folic Acid) 23.16 ng/mL (>5.38)
--- NOTE | 2024-11-21 15:11 | DVHINCON2 ---
Date of Service if different f: Nov 21, 2024 Consultation (SUDAN) Labs Laboratory Tests Test 11/19/24 05:42 11/19/24 06:42 11/19/24 08:53 11/20/24 03:49 Bedside Glucose 166 mg/dl (70-106) Hemoglobin A1c 6.3 % A1C (<5.7) Salicylates Level < 3.0 mg/dL (-30) Acetaminophen Level < 2.0 UG/ML (10.0-20.0) Plasma/Serum Blood Alcohol < 3.0 mg/dL (<10) Urine Color Light-yellow (Yellow) Urine Clarity Clear (Clear) Urine pH 5.5 (5.0-9.0) Urine Specific [place] 1.022 (1.001-1.035) Urine Protein Negative (Negative) Urine Ketones 1+ (Negative) Urine Blood Negative /uL (Negative) Urine Nitrite Negative (Negative) Urine Bilirubin Negative (Negative) Urine Urobilinogen Normal mg/dL (Negative) Urine Leukocyte Esterase Negative /uL (Negative) Urine RBC 1 /hpf (0 - 4) Urine Microscopic WBC 1 /HPF (0-5) Urine Squamous Epithelial Cells Few /hpf (<5) Urine Bacteria None seen /hpf (None Seen) Urine Mucus Few (None Seen) Urine Glucose Normal mg/dL (Normal) Urine Opiates Screen Neg (NEGATIVE) Urine Fentanyl Screen Neg (NEGATIVE) Urine Barbiturates Screen Neg (NEGATIVE) Urine Phencyclidine Screen Neg (NEGATIVE) Urine Amphetamines Screen Neg (NEGATIVE) Urine Benzodiazepines Screen Neg (NEGATIVE) Urine Cocaine Screen Neg (NEGATIVE) Urine Cannabinoids Screen Neg (NEGATIVE) White Blood Count 6.7 10^3/uL (4.4-10.8) Red Blood Count 4.50 10^6/uL (4.0-5.20) Hemoglobin 14.0 g/dL (12.2-16.2) Hematocrit 40.4 % (36.0-46.0) Mean Corpuscular Volume 89.7 fL (80.0-100.0) Mean Corpuscular Hemoglobin 31.1 pg (28.0-32.0) Mean Corpuscular Hemoglobin Concent 34.6 g/dL (32.0-36.0) Red Cell Distribution Width 12.7 % (11.8-14.3) Platelet Count 234 10^3/uL (140-450) Mean Platelet Volume 8.0 fL (6.9-10.8) Neutrophils (%) (Auto) 65.1 % (37.0-80.0) Lymphocytes (%) (Auto) 25.9 % (10.0-50.0) Monocytes (%) (Auto) 6.9 % (0.0-12.0) Eosinophils (%) (Auto) 1.4 % (0.0-7.0) Basophils (%) (Auto) 0.7 % (0.0-2.0) Neutrophils # (Auto) 4.3 10 ^3/uL (1.6-8.6) Lymphocytes # (Auto) 1.7 10 ^3/uL (0.4-5.4) Monocytes # (Auto) 0.5 10 ^3/uL (0-1.3) Eosinophils # (Auto) 0.1 10 ^3/uL (0-0.8) Basophils # (Auto) 0 10 ^3/uL (0-0.2) Nucleated Red Blood Cells 0.2 % Sodium Level 142 mmol/L (136-145) Potassium Level 3.9 mmol/L (3.5-5.1) Chloride Level 107 mmol/L (98-107) Carbon Dioxide Level 26 mmol/L (20-31) Anion Gap 9 (5-15) Blood Urea Nitrogen 10 mg/dL (9-23) Creatinine 0.71 mg/dL (0.550-1.02) Glomerular Filtration Rate Calc 102 mL/min (>90) BUN/Creatinine Ratio 14.1 (10.0-20.0) Serum Glucose 109 mg/dL (74-106) Calcium Level 9.8 mg/dL (8.7-10.4) Total Bilirubin 0.6 mg/dL (0.2-1.0) Aspartate Amino Transf (AST/SGOT) 22 U/L (<34) Alanine Aminotransferase (ALT/SGPT) 20 U/L (7-40) Alkaline Phosphatase 61 U/L (46-116) Total Protein 7.1 g/dL (5.7-8.2) Albumin 4.4 g/dL (3.2-4.8) Vitamin B12 Level 399 pg/mL (211-911) Folic Acid (LAB) 23.16 ng/mL (>5.38) Thyroid Stimulating Hormone (TSH) 1.89 uIU/mL (0.55-4.78) Appetite: Poor Appearance: Stated age, Groomed Behavioral: Cooperative Eye contact: Appropriate Speech: WNL Affect: Mood Congruent Mood: Depressed Thought processes: Linear/Goal-directed Thought content: WNL Suicidal ideations: Absent Homicidal ideations: Absent Orientation: Person, Place, Time, Situation Memory intact: Recent Intellect: Average Abstractability: WNL Concentration: Adequate Attention: Adequate Judgement: WNL Insight: Fair Vitals Vital Signs Date Time Temp Pulse Resp B/P (MAP) Pulse Ox O2 Delivery O2 Flow Rate FiO2 11/21/24 13:50 98.2 86 17 127/76 (93) 96 98.2 11/21/24 07:48 Room Air* 0 21 Current medications Current Medications Medications Dose Ordered Sig/Teri Route Start Time Stop Time Status Last Admin Dose Admin Sodium Chloride 10 ml Q8HR IV 11/19/24 22:00 11/21/24 13:14 10 ML Ondansetron HCl 4 mg Q4HP PRN IV 11/19/24 14:45 Docusate Sodium 100 mg BIDPRN PRN PO 11/19/24 14:45 Acetaminophen 650 mg Q6HP PRN PO 11/19/24 14:45 Nitroglycerin 0.4 mg Q5MINP PRN SL 11/19/24 16:15 Lorazepam 1 mg ONCE PRN IV 11/20/24 22:30 Treatment plan discussed: With staff, Family Medication adjusted: Yes Diagnosis: unspecified anxiety disorder, unspecified mood disorder r/o bipolar Plan : Patient presently denies suicidal/homicidal ideation. she does not meet LPS hold criteria. patient may discharge home after medical clearance and follow up with outpatient mental health referrals. d/c paroxetine for possible merissa activation. Start Abilify 5mg po daily. History of Present Illness Reason for Consult : Hx of depression and psychiatric evaluation HPI : This is a 54-year-old female with prior hx of depression and anxiety presented to the hospital for ALOC and being combative at home. Patient is evaluated via Telepsychiatry with sister and partner at bedside. Patient reports history of depression since 1991 after losing her job in [place]. She also reports panic attacks which started 20 years ago. She reports panic attacks restarted again a few months ago, no known triggers. Shes had about two or three panic attacks in the last several months. Patient does not recall being combative or what occurred prior to coming to the hospital here. She does report often feeling depressed and not wanting to go out. She has reports trouble with the eating and sleeping, has decreased appetite, and sleeping about 6 to 7 hours per night. She reports feeling depressed, anhedonia. she denies any thoughts of not wanting to live. She denies suicidal or homicidal ideation. She denies auditory/visual hallucinations or paranoia thoughts. No known history of merissa. per previous note, family reported in September 2024, she was not sleeping, acting bizarre and talking excessively. Past Psychiatric History : Patient has family at bedside and they report recent prescription for paroxetine 10mg. She only used 3 tablets and per family, began acting bizarre and seemed more anxious. She denies other use of psychotropic medications. She denies any outpatient follow up, currently no therapist or psychiatrist. She denies any prior psych admissions or holds. She denies any prior suicide attempts. Shed denies prior mental health evaluation or diagnoses. Past Medical History : She reports hx of depression and anxiety Social History : She lives at home with partner. she is employed. She reports family history of depression, brothers and niece have depression. She denies any drugs or alcohol use. toxicology is negative MARTINA TANG DNP Nov 21, 2024 15:11
[2024-11-22 01:00] VITALS: BP 125/69; PULSE 75; RESP 17; TEMP 98.1; O2SAT 97
[2024-11-22 05:00] VITALS: BP 122/75; PULSE 74; RESP 17; TEMP 97.9; O2SAT 99
[2024-11-22 08:00] VITALS: PULSE 75
[2024-11-22 09:00] VITALS: BP 117/69; PULSE 76; RESP 18; TEMP 97.9; O2SAT 98
--- NOTE | 2024-11-22 11:41 | DVHPN2 ---
Eyes: No Pain, No Vision change, No Conjunctivae inflammation, No Eyelid inflammation, No Other, No Redness ENT: No Ear pain, No Ear discharge, No Nose pain, No Nose discharge, No Nose congestion, No Mouth pain, No Mouth swelling, No Throat pain, No Throat swelling, No Other Cardiovascular: No Chest Pain, No Palpitations, No Orthopnea, No Paroxysmal Noc. Dyspnea, No Edema, No Lt Headedness, No Other Respiratory: No Cough, No Dry, No Shortness of breath, No SOB with excertion, No Wheezing, No Hemoptysis, No Pleuritic Pain, No Sputum, No Other Gastrointestinal: No Nausea, No Vomiting, No Abdominal Pain, No Diarrhea, No Constipation, No Melena, No Hematochezia, No Other Genitourinary: No Dysuria, No Frequency, No Incontinence, No Hematuria, No Retention, No Other Musculoskeletal: No other, No neck pain, No shoulder pain, No arm pain, No back pain, No hand pain, No leg pain, No foot pain Skin: No Rash, No Lesions, No Jaundice, No Bruising, No Other Objective Vitals Vital Signs Date Time Temp Pulse Resp B/P (MAP) Pulse Ox O2 Delivery O2 Flow Rate FiO2 11/22/24 08:00 Room Air* 0 21 11/22/24 08:00 75 11/22/24 05:00 97.9 17 122/75 (91) 99 97.9 Intake/Output Intake and Output 11/22/24 07:00 Intake Total 1225 ml Output Total 2450 ml Balance -1225 ml Intake Oral 1225 ml Output Urine Total 2450 ml # Bowel Movements 2 General Appearance: Alert, Oriented X3 Lungs: Clear to auscultation, Normal air movement Cardiovascular: Regular rate, Normal S1, Normal S2, No murmurs Abdomen: Normal bowel sounds, Soft Extremities: No edema Medications Current Medications Medications Dose Ordered Sig/Teri Route Start Time Stop Time Status Last Admin Dose Admin Sodium Chloride 10 ml Q8HR IV 11/19/24 22:00 11/22/24 05:47 10 ML Ondansetron HCl 4 mg Q4HP PRN IV 11/19/24 14:45 Docusate Sodium 100 mg BIDPRN PRN PO 11/19/24 14:45 Acetaminophen 650 mg Q6HP PRN PO 11/19/24 14:45 Nitroglycerin 0.4 mg Q5MINP PRN SL 11/19/24 16:15 Lorazepam 1 mg ONCE PRN IV 11/20/24 22:30 Laboratory Results Laboratory Tests 11/20/24 03:49 Urinalysis Test 11/19/24 08:53 Urine Color Light-yellow (Yellow) Urine Clarity Clear (Clear) Urine pH 5.5 (5.0-9.0) Urine Specific [place] 1.022 (1.001-1.035) Urine Protein Negative (Negative) Urine Ketones 1+ (Negative) H Urine Blood Negative /uL (Negative) Urine Nitrite Negative (Negative) Urine Bilirubin Negative (Negative) Urine Urobilinogen Normal mg/dL (Negative) Urine Leukocyte Esterase Negative /uL (Negative) Urine RBC 1 /hpf (0 - 4) Urine Microscopic WBC 1 /HPF (0-5) Urine Squamous Epithelial Cells Few /hpf (<5) Urine Bacteria None seen /hpf (None Seen) Urine Mucus Few (None Seen) Urine Glucose Normal mg/dL (Normal) BOZENA CARLISLE MD Nov 22, 2024 11:41
--- NOTE | 2024-11-22 13:25 | DVHDS2 ---
Discharge Summary Date of Admission Nov 19, 2024 at 16:10 Date of Discharge: Nov 22, 2024 Admitting Diagnosis Altered level of consciousness Anxiety Depression? DM2 Hypokalemia Labs/Diagnostic Data: Laboratory Results Test 11/20/24 03:49 11/19/24 08:53 11/19/24 06:42 11/19/24 05:42 White Blood Count 6.7 10^3/uL (4.4-10.8) Red Blood Count 4.50 10^6/uL (4.0-5.20) Hemoglobin 14.0 g/dL (12.2-16.2) Hematocrit 40.4 % (36.0-46.0) Mean Corpuscular Volume 89.7 fL (80.0-100.0) Mean Corpuscular Hemoglobin 31.1 pg (28.0-32.0) Mean Corpuscular Hemoglobin Concent 34.6 g/dL (32.0-36.0) Red Cell Distribution Width 12.7 % (11.8-14.3) Platelet Count 234 10^3/uL (140-450) Mean Platelet Volume 8.0 fL (6.9-10.8) Neutrophils (%) (Auto) 65.1 % (37.0-80.0) Lymphocytes (%) (Auto) 25.9 % (10.0-50.0) Monocytes (%) (Auto) 6.9 % (0.0-12.0) Eosinophils (%) (Auto) 1.4 % (0.0-7.0) Basophils (%) (Auto) 0.7 % (0.0-2.0) Neutrophils # (Auto) 4.3 10 ^3/uL (1.6-8.6) Lymphocytes # (Auto) 1.7 10 ^3/uL (0.4-5.4) Monocytes # (Auto) 0.5 10 ^3/uL (0-1.3) Eosinophils # (Auto) 0.1 10 ^3/uL (0-0.8) Basophils # (Auto) 0 10 ^3/uL (0-0.2) Nucleated Red Blood Cells 0.2 % Sodium Level 142 mmol/L (136-145) Potassium Level 3.9 mmol/L (3.5-5.1) Chloride Level 107 mmol/L (98-107) Carbon Dioxide Level 26 mmol/L (20-31) Anion Gap 9 (5-15) Blood Urea Nitrogen 10 mg/dL (9-23) Creatinine 0.71 mg/dL (0.550-1.02) Glomerular Filtration Rate Calc 102 mL/min (>90) BUN/Creatinine Ratio 14.1 (10.0-20.0) Serum Glucose 109 mg/dL (74-106) Calcium Level 9.8 mg/dL (8.7-10.4) Total Bilirubin 0.6 mg/dL (0.2-1.0) Aspartate Amino Transferase (AST) 22 U/L (<34) Alanine Aminotransferase (ALT) 20 U/L (7-40) Alkaline Phosphatase 61 U/L (46-116) Total Protein 7.1 g/dL (5.7-8.2) Albumin 4.4 g/dL (3.2-4.8) Vitamin B12 Level 399 pg/mL (211-911) Folic Acid 23.16 ng/mL (>5.38) Thyroid Stimulating Hormone (TSH) 1.89 uIU/mL (0.55-4.78) Urine Color Light-yellow (Yellow) Urine Clarity Clear (Clear) Urine pH 5.5 (5.0-9.0) Urine Specific [place] 1.022 (1.001-1.035) Urine Protein Negative (Negative) Urine Ketones 1+ (Negative) Urine Blood Negative /uL (Negative) Urine Nitrite Negative (Negative) Urine Bilirubin Negative (Negative) Urine Urobilinogen Normal mg/dL (Negative) Urine Leukocyte Esterase Negative /uL (Negative) Urine RBC 1 /hpf (0 - 4) Urine Microscopic WBC 1 /HPF (0-5) Urine Squamous Epithelial Cells Few /hpf (<5) Urine Bacteria None seen /hpf (None Seen) Urine Mucus Few (None Seen) Urine Glucose Normal mg/dL (Normal) Urine Opiates Screen Neg (NEGATIVE) Urine Fentanyl Screen Neg (NEGATIVE) Urine Barbiturates Screen Neg (NEGATIVE) Urine Phencyclidine Screen Neg (NEGATIVE) Urine Amphetamines Screen Neg (NEGATIVE) Urine Benzodiazepines Screen Neg (NEGATIVE) Urine Cocaine Screen Neg (NEGATIVE) Urine Cannabinoids Screen Neg (NEGATIVE) Hemoglobin A1c 6.3 % A1C (<5.7) Salicylates Level < 3.0 mg/dL (-30) Acetaminophen Level < 2.0 UG/ML (10.0-20.0) Plasma/Serum Blood Alcohol < 3.0 mg/dL (<10) POC Glucose 166 mg/dl (70-106) Other Laboratory Tests 11/20/24 03:49 Brief Hx & Hospital Course: This is a 54 years old female with no known past medical history except hypertension come to emergency department because of altered mental status, confused and combative. The patient apparently had a similar episode in September 2024 after her childbirth. The patient was given Prozac per primary care physician. Per family, patient took about three pills and become altered and confused and combative. The patient was admitted. CT head showed no acute intracranial process. All other tests remained negative. Source of infection. Psychiatrist was consulted. Recommend discontinuing Prozac due to possible induced merissa activation. Start Abilify 5mg po daily. Patient is doing better. No complaint today. So I am going to discharge her home. Advised her to follow up with primary care physician 1-2 weeks. Follow up with psychiatrist and counselor as outpatient per schedule. Physical exam: HEENT: Normocephalic atraumatic pupils equal react to light and accommodation. Extraocular muscles intact, conjunctiva pink, oropharynx moist, no thrush, no exudate. Lymphatic: No lymphadenopathy Cardiovascular exam: S1, S2 was heard. No murmurs, rubs, gallops Lung: Clear on auscultation bilaterally, no wheeze, rale, rhonchi. GI: Abdominal soft, nondistended, nontenderness, positive bowel sounds. Extremity: No crepitus, cyanosis, edema. Pedal pulses present bilateral. Full range of motion. Skin: Normal turgor, no rash. Psych: Alert, oriented x3. Neurology: No focal deficits, cranial nerve II to XII grossly intact. This medical document was created using an electronic medical record system with [employer] direct computerized dictation system. Although this document has been carefully reviewed, there may still be some phonetic and typographical errors. These areas are purely typographical due to imperfections of the software programs, and do not reflect any compromise in the patient's medical care. Condition at Discharge: Stable Final Diagnosis/Problems List Metabolic Encephalopathy Altered level of consciousness, resolved Anxiety Depression DM2 Hypokalemia, status post replacement Discharge Disposition: Home Discharge Instruct/Medications Diet: Consistent carbohydrate Activity: No Restrictions, As Tolerated Discharge Statement: "Patient was advised to return to the ER or call 911 if any headaches, dizziness, shortness of breath, chest pain, abdominal pain, bleeding, fevers, or worsening of medical condition. Patient was counseled about treatment plan, medications, possible side effects, patientverbalized understanding. All questions were answered to the best of my ability. This discharge took greater then 30 minutes in planning, reviewing documentation, counseling the patient, and discussing with other team members." ASSESSMENT ASSESSMENT Assessment Encephalopathy Date of Service: Nov 22, 2024 Billing Provider: BOZENA CARLISLE MD Common Visit Codes: 29647-IYO/OBS DISCH DAY >30min BOZENA CARLISLE MD Nov 22, 2024 13:25
[2024-11-22 14:56] VITALS: BP 122/75; PULSE 74; RESP 17; TEMP 97.9; O2SAT 99
--- NOTE | 2024-11-22 21:51 | DVHEEG2 ---
Neurology EEG Procedural Note Procedural Note EXAM DATE: 11/21/2024 REFERRING DOCTOR: Dr. Garner TECHNIQUE: Eighteen channels of EEG, 2 channels of EOG, and 1 channel of EKG were recorded using the [employer] 10/20 system. CLINICAL DATA: The patient was referred for an EEG evaluation for the evidence of seizure disorder. MEDICATIONS: See the chart BACKGROUND ACTIVITY: While the patient was awake, the background activity consisted of well regulated 10-11 Hz rhythmic waveforms, symmetrically distributed over both posterior quadrants and was reactive to eye opening. ACTIVATION: Hyperventilation: Not done Photic Stimulation: No photic convulsive response Sleep: Not seen IMPRESSION: This is a normal EEG. No focal, lateralized, or epileptiform features are noted. If clinically indicated to rule out a seizure disorder, recommend repeat EEG with sleep deprivation. The EKG channel showed a regular heart rate of 72/minute [place] [address] PHAN GARNER MD Nov 22, 2024 21:51
[2024-11-26] MEDS ORDERED: ARIP2TAB PO (11:23)
== END 2024-11-22 16:25 | disposition home or self-care (01) | DRG 53 ==
LOC: ER 05:30 → OVERFLOW 16:10 → TELE-EAST 11-20 15:22
PROVIDERS: ADMIT Internal Medicine; ATTEND Internal Medicine
DX: G40.409 Other generalized epilepsy and epileptic syndromes, not intractable, without status epilepticus (principal); E11.9 Type 2 diabetes mellitus without complications; E87.6 Hypokalemia; F31.9 Bipolar disorder, unspecified; F41.0 Panic disorder [episodic paroxysmal anxiety]; I10 Essential (primary) hypertension; E78.5 Hyperlipidemia, unspecified; Z83.3 Family history of diabetes mellitus; Z81.8 Family history of other mental and behavioral disorders; Z79.84 Long term (current) use of oral hypoglycemic drugs; Z79.899 Other long term (current) drug therapy
CPT/HCPCS: 36415; 70450; 70551; 71045; 80048; 80053; 80307; 80320; 80329; 81001; 82607; 82746; 82962; 83036; 84443; 85025; 95819; 96372; 99291; G0378